=== PATIENT | male | born 1995 | race Caucasian/White ===

== ENCOUNTER 2017-09-09 17:13 | Inpatient (IN) | payer OTHER ==
[~2017-09-09 17:13] MED LIST: Dexamethasone 20 MG/5 ML VIAL ONE; Glycopyrrolate 0.2 MG/ML 5 ML SYRINGE ONE; ISOVUE-370 76%-LOCM 1 ML ONE; Iopamidol 370 76% 50 ML VIAL FS ONE; Lidocaine 1% PF 5 ML VIAL ONE; PHENYLEPHRINE-NS 100 MCG/ML 10 ML SYRINGE ONE; PROPOFOL 200 MG/20 ML VIAL ONE; Succinylcholine Chloride 20 MG/ML 10 ml SYRINGE FS ONE
[2017-09-09] MEDS ORDERED: Morphine 4 MG/ML VIAL ONE (18:11)
[2017-09-09 18:42] LABS: Bilirubin Negative (Negative); Blood, Urine Negative (Negative); Clarity CLEAR (Clear); Glucose, Urine (Dipstick) Negative (Negative); Leukocyte Negative (Negative); Nitrite Negative (Negative); Protein, Urine (Dipstick) Negative (Neg-Trace); Specific Gravity, Urine 1.021 (1.002-1.036); pH, Urine 7.5 (5.0-9.0)
[2017-09-09 18:44] LABS: #Basophils 0.1 thou/uL (0.0-0.2); #Eosinphils 0.1 thou/uL (0.0-0.7); #Lymphocytes 1.9 thou/uL (1.20-3.40); #Monocytes 0.8 thou/uL (0.11-0.59); #Neutrophils 6.8 thou/uL (1.40-6.50); %Basophils 0.8 % (0.0-1.0); %Eosinophils 0.5 % (0.0-10.0); %Lymphocytes 20.2 % (21.0-51.0); %Monocytes 7.9 % (0.0-10.0); %Neutrophils 70.6 % (42.0-75.0); Hemoglobin 16.7 g/dL (14.0-18.0); Mean Corpuscular HGB CONC 33.6 g/dL (32.0-36.0); Mean Corpuscular Hemoglobin 29.8 pg (27.0-31.0); Mean Corpuscular Volume 88.8 fl (80.0-94.0); Mean Platelet Volume 6.4 fL (7.4-10.4); Platelet Count 328 thou/uL (130-400); RBC Distribution Width 11.6 % (11.5-14.5); Red Blood Cell (RBC) Count 5.59 mill/uL (4.70-6.10); White Blood Cell (WBC) Count 9.6 thou/uL (4.8-10.8)
[2017-09-09 18:57] LABS: ALT (SGPT) 18 U/L (8-55); AST (SGOT) 16 U/L (5-34); Albumin 4.7 g/dL (3.5-5.0); Alkaline Phosphatase 81 U/L (40-150); Anion Gap 14 mmol/L (10-20); BUN (Urea Nitrogen) 9 mg/dL (8.9-20.6); Bilirubin, Total 0.5 mg/dL (0.2-1.2); Calc. Creatinine Clearance 0 mL/min (70-130); Calcium 9.6 mg/dL (7.8-10.44); Carbon Dioxide 24 mmol/L (22-29); Chloride 105 mmol/L (98-107); Estimated GFR-MDRD Greater than 90; Globulin 3.3 g/dL (2.4-3.5); Glucose 90 mg/dL (70-105); Lipase 11 U/L (8-78); Potassium 4.1 mmol/L (3.5-5.1); Sodium 139 mmol/L (136-145)
[2017-09-09] MEDS ORDERED: Piperacillin/Tazobactam 3.375 GM VIAL ONE (21:02)
[2017-09-09] MEDS ORDERED: Bupivacaine HCl 0.5%/Epinephrine 1:200,000/PF 30 ml Vial ONE (21:11)
[2017-09-09] MEDS ORDERED: Fentanyl 100 MCG/2 ML VIAL ONE ×4 (21:41→23:15)
--- NOTE | 2017-09-09 21:59 | CT ---
ABDOMEN CT WITH CONTRAST PELVIC CT WITH CONTRAST 09/09/17 HISTORY: Right lower quadrant pain, x2 days. Pain is worsening. COMPARISON: None. TECHNIQUE: An abdomen and pelvic CT are performed with IV and oral contrast. Coronal reformatted images are subm itted for interpretation. FINDINGS: ABDOMEN CT: Lung bases are clear. heart size is normal. No pericardial effusion. The descending thoracic aorta an d abdominal aorta have a normal caliber. No periaortic fat stranding. Intra and extra-hepatic portal vein is patent. Gallbladder is unremarkable. Liver, spleen, pancreas, and bilateral adrenal glands have appropriate enhancement. Unremarkable gall bladder. Symmetric enhancement of the kidneys. Bilaterally, no obstructive uropathy. No gastrohepatic, retrocrural or periportal lymphadenopathy. No mesenteric mass, lymphadenopathy, rl e air, or free fluid. There are scattered nonspecific, nonenlarged mesenteric lymph nodes. Gastric mucosal, duodenum and small bowel loops are normal. Ileocecal junction is normal. Scattered f ecal material and contrast in a nondistended, nondilated colon. Diverticulosis, without evidence of diverticulitis. Emanating from the cecal apex is a tubular structure containing hyperdense material i n the proximal aspect. The mid to distal aspect are dilated and there is evidence of adjacent mesente glen fat stranding. No evidence of perforation or abscess. Tubular structure measures approximately [address]: No mass, lymphadenopathy, free air, or free fluid. Urinary bladder is unremarkable. IMPRESSION: Appendicitis without evidence of perforation or abscess. Results of the study discussed with ER nurse practioner, 09/09/17 at 8:32 p.m. Code CR POS: [facility]
--- NOTE | 2017-09-09 22:49 | HP ---
DATE OF ADMISSION: 09/09/2017 CHIEF COMPLAINT: Right lower quadrant pain. HISTORY OF PRESENT ILLNESS: This is a 22-year-old student who presents with pain in lower abdomen. The pain is sharp described as 08/10, mostly in the right lower quadrant associated with nausea, no v omiting that associated with anorexia, but no fevers or chills. He has never had this kind of pain b efore. Denies history of chronic inflammatory bowel disease or Crohn's disease. PAST MEDICAL HISTORY: Denies. PAST SURGICAL HISTORY: Right knee surgery. MEDICINES TAKEN DAILY: None. ALLERGIES: No known drug allergies. SOCIAL HISTORY: No smoking, alcohol, or other drugs. REVIEW OF SYSTEMS: Ten-system review of systems, otherwise negative unless described above. PHYSICAL EXAMINATION: HEENT: Sclerae anicteric. Oropharynx clear. NECK: No lymphadenopathy. CHEST: Clear. HEART: Regular rate and rhythm. ABDOMEN: Soft, tender in the right lower quadrant, localized guarding. No rebound, no abdominal or inguinal hernias. EXTREMITIES: No ischemia or edema to extremities. LABORATORY AND X-RAY FINDINGS: CT scan shows acute appendicitis. ASSESSMENT: Acute appendicitis. PLAN: Laparoscopic appendectomy. Risks, benefits, alternatives discussed. He gives consent. We wi ll do this today.
[2017-09-09] MEDS ORDERED: Ondansetron HCl/PF 4 MG/2 ML Vial IVP PRN ×2 (22:54→23:50)
[2017-09-09] MEDS ORDERED: Promethazine HCl 25 MG/ML VIAL SLOW IVP PRN (22:54)
[2017-09-09] MEDS ORDERED: Promethazine HCl 25 MG/ML VIAL IM PRN ×2 (22:54→23:50)
[2017-09-09] MEDS ORDERED: HYDROcodone/Acetaminophen 10/325 mg Tablet PO PRN ×2 (23:50)
[2017-09-09] MEDS ORDERED: traMADol HCl 50 MG TAB PO PRN (23:50)
[2017-09-09] MEDS ORDERED: Dextrose 5% in Water 1,000 ML IV PRN (23:50)
[2017-09-09] MEDS ORDERED: hydrALAZINE 20 MG/ML VIAL SLOW IVP PRN (23:50)
[2017-09-09] MEDS ORDERED: Dextrose 50% Abboject 50 ML SYRINGE SLOW IVP PRN (23:50)
[2017-09-09] MEDS ORDERED: Sodium Chloride 0.9% 1,000 ML IV SCH (23:50)
[2017-09-09] MEDS ORDERED: Morphine 4 MG/ML VIAL SLOW IVP PRN (23:50)
[2017-09-09] MEDS ORDERED: Ketorolac Tromethamine 30 MG/ML VIAL IVP PRN (23:50)
[2017-09-10] MEDS: Morphine 4 MG/ML VIAL SLOW IVP PRN ×2 (00:36→03:09)
[2017-09-10 01:38] VITALS: BMI 37.5
[2017-09-10] MEDS: Piperacillin/Tazobactam 3.375 GM in Sodium Chloride 0.9% 100 ML IVPB SCH ×2 (03:10→07:57)
--- NOTE | 2017-09-10 05:36 | OP ---
DATE OF PROCEDURE: 09/09/2017 PREOPERATIVE DIAGNOSIS: Acute appendicitis. POSTOPERATIVE DIAGNOSIS: Acute appendicitis. PROCEDURE: Laparoscopic appendectomy. SURGEON: Jose Miguel Martínez M.D. ANESTHESIA: General. ESTIMATED BLOOD LOSS: Minimal. COMPLICATIONS: None. SPECIMEN: Appendix. FINDINGS: Appendicitis. TECHNIQUE: The patient was taken to the operating room, placed supine on the table. After general a nesthetic was obtained, the abdomen was shaved, and draped in a sterile fashion. A Dixon catheter barr d been placed. Curved incision made below the umbilicus, cautery used to dissect down to and score t he fascia. Abdominal cavity entered bluntly using a Fe clamp. Holding stitch of PDS was placed o n each side of the fascia. Nathan trocar was placed, high flow pneumoperitoneum was obtained. A sup rapubic 5 murmur port and a left lower quadrant 5 murmur port were placed under direct visualization. The cecum was rolled over to reveal acute appendicitis. A small window was made at the base of the appendix and the mesoappendix. A laparoscopic stapler was fired across the base of the appendix. A reload is fired across the mesoappendix. The appendix was placed in an Endo catch bag and brought o ut through the Nathan. There is no bleeding on the staple lines. The right lower quadrant and pelvi s was irrigated until returns are clear. There was no bleeding or evidence of damage to any intraabd ominal structures. All port sites infiltrated using local anesthetic. All ports are removed under c amera visualization. Pneumoperitoneum was let down. PDS was used to close the facial defect below t he umbilicus. All incisions were irrigated and closed using 4-0 Monocryl and Dermabond. The patient was en route to recovery in stable condition. All instrument counts, needle counts, and lap counts were correct.
[2017-09-10 08:01] VITALS: BP 111/73; TEMP 98.7
[2017-09-10] MEDS ORDERED: Famotidine/PF 20 mg/2ml Vial SLOW IVP SCH (09:00)
[2017-09-10] MEDS ORDERED: Prevnar 13-Val Conj/PF 0.5 ML SYRINGE IM ONE (09:00)
[2017-09-10] MEDS ORDERED: Famotidine 20 MG TAB PO SCH (09:00)
--- NOTE | 2017-09-10 12:21 | DIS ---
ADMIT DIAGNOSIS: Acute appendicitis. DISCHARGE DIAGNOSIS: Acute appendicitis. PROCEDURES: Laparoscopic appendectomy by Dr. Martínez without complication. CONDITION AT DISCHARGE: Improved. STAFF: Dr. Jose Miguel Martínez. HOSPITAL COURSE: See hospital chart for details of hospitalization. The patient discharged home on [place] as well as Zofran p.r.n. nausea. He will follow up with me in 2 weeks.
== END 2017-09-10 10:14 | disposition home or self-care (01) | DRG 343 ==
LOC: ERS 17:13 → SDC/OP 22:20 → SURG B 23:44 → OBSVTOIN 23:44
PROVIDERS: ADMIT Surgery; ATTEND Surgery
PROC: 0DTJ4ZZ Resection of Appendix, Percutaneous Endoscopic Approach (ICD-10-PCS; principal; 2017-09-09)
DX: K35.80 Unspecified acute appendicitis (principal)
CPT/HCPCS: 74177; 80053; 81003; 83690; 85025; 88304; 96361; 96365; 96374; 96375; J0670; J1100; J2001; J2270; J2543; J2704; J3010; J7050

== ENCOUNTER 2017-09-15 09:40 | Emergency (ER) | payer OTHER ==
[2017-09-15 11:18] LABS: #Basophils 0.1 thou/uL (0.0-0.2); #Eosinphils 0.2 thou/uL (0.0-0.7); #Lymphocytes 2.6 thou/uL (1.20-3.40); %Basophils 1.2 % (0.0-1.0); %Eosinophils 1.6 % (0.0-10.0); %Lymphocytes 24.3 % (21.0-51.0); %Monocytes 8.7 % (0.0-10.0); %Neutrophils 64.3 % (42.0-75.0); Mean Corpuscular HGB CONC 32.5 g/dL (32.0-36.0); Mean Corpuscular Hemoglobin 29.6 pg (27.0-31.0); Mean Corpuscular Volume 91.1 fl (80.0-94.0); Mean Platelet Volume 6.4 fL (7.4-10.4); Platelet Count 318 thou/uL (130-400); RBC Distribution Width 11.6 % (11.5-14.5); Red Blood Cell (RBC) Count 5.39 mill/uL (4.70-6.10); White Blood Cell (WBC) Count 10.8 thou/uL (4.8-10.8)
[2017-09-15 11:37] LABS: ALT (SGPT) 27 U/L (8-55); AST (SGOT) 19 U/L (5-34); Albumin 4.3 g/dL (3.5-5.0); Alkaline Phosphatase 71 U/L (40-150); Anion Gap 11 mmol/L (10-20); BUN (Urea Nitrogen) 11 mg/dL (8.9-20.6); Bilirubin, Total 0.3 mg/dL (0.2-1.2); Calc. Creatinine Clearance 0 mL/min (70-130); Calcium 9.3 mg/dL (7.8-10.44); Carbon Dioxide 23 mmol/L (22-29); Chloride 106 mmol/L (98-107); Estimated GFR-MDRD Greater than 90; Glucose 93 mg/dL (70-105); Lipase 14 U/L (8-78); Potassium 4.2 mmol/L (3.5-5.1); Protein, Total 7.3 g/dL (6.0-8.3); Sodium 136 mmol/L (136-145)
[2017-09-15] MEDS ORDERED: Ketorolac Tromethamine 30 MG/ML VIAL ONE (12:15)
[2017-09-15 12:41] LABS: Bilirubin Negative (Negative); Blood, Urine Negative (Negative); Clarity CLEAR (Clear); Glucose, Urine (Dipstick) Negative (Negative); Leukocyte Negative (Negative); Nitrite Negative (Negative); Protein, Urine (Dipstick) Negative (Neg-Trace); Specific Gravity, Urine 1.025 (1.002-1.036); Urobilinogen 0.2 mg/dL (0.2-1.0)
--- NOTE | 2017-09-15 13:58 | CT ---
CT ABDOMEN AND PELVIS WITH IV CONTRAST: DTAE: 09/15/17. HISTORY: Right side abdominal pain and fever. The patient is post laparoscopic appendectomy 6 days ago. The patient has had continued pain. COMPARISON: 09/09/17. FINDINGS: There are postsurgical changes related to recent cholecystectomy. There is mild inflammatory strandi ng seen within the posterior aspect right paracolic gutter. There is no fluid collection seen to sug gest an abscess and no free intraperitoneal gas is visualized. The inflammatory stranding in the rig ht lower quadrant may be related to recent post cholecystectomy changes. A few nonspecific nonenlarg ed lymph nodes are again seen. There is a minimal linear pleural-based density in the right middle lobe. There is a very tiny right pleural effusion. Lung bases are otherwise clear. The liver, spleen, pancreas, bilateral adrenal glands, kidneys, abdominal aorta, and opacified small bowel demonstrate a normal CT appearance. The urinary bladder demonstrates a normal CT appearance. There is no free fluid or enlarged lymph nodes seen by CT size criteria. IMPRESSION: 1. Mild inflammatory stranding seen posterior to the proximal ascending colon near the level of the cecum which may be related to recent postsurgical changes. There is no fluid collection seen to sugg est an abscess, and no free intraperitoneal gas is seen in the abdomen or pelvis. CT scan of the abdomen and pelvis is otherwise stable from prior study. 2. Gas densities near the region of the umbilicus which may be related to site of prior Trocar place ment. POS: [facility]
[2017-09-15] MEDS ORDERED: ISOVUE-370 76%-LOCM 1 ML ONE (15:51)
== END 2017-09-15 14:14 | disposition home or self-care (01) ==
LOC: ERS 09:40
DX: K59.00 Constipation, unspecified (principal); G43.909 Migraine, unspecified, not intractable, without status migrainosus
CPT/HCPCS: 36415; 74177; 80053; 81003; 83690; 85025; 96374; J1885

== ENCOUNTER 2018-02-24 11:52 | Emergency (ER) | payer OTHER ==
[2018-02-24] MEDS ORDERED: Acetaminophen 500 MG TAB ONE (12:23)
[2018-02-24] MEDS ORDERED: Metoclopramide HCl 10 MG/2 ML VIAL ONE (12:23)
[2018-02-24] MEDS ORDERED: Ketorolac Tromethamine 30 MG/ML VIAL ONE (12:23)
[2018-02-24] MEDS ORDERED: Dexamethasone 10 MG/ML VIAL ONE (12:23)
== END 2018-02-24 13:26 | disposition home or self-care (01) ==
LOC: ERS 11:52
DX: G43.909 Migraine, unspecified, not intractable, without status migrainosus (principal)
CPT/HCPCS: 96365; 96375; J1100; J1885; J2765

== ENCOUNTER 2018-03-02 17:49 | Emergency (ER) | payer OTHER ==
[2018-03-02] MEDS ORDERED: Metoclopramide HCl 10 MG/2 ML VIAL ONE (19:03)
[2018-03-02] MEDS ORDERED: Ketorolac Tromethamine 30 MG/ML VIAL ONE (19:03)
[2018-03-02] MEDS ORDERED: diphenhydrAMINE 50 MG/ML VIAL ONE (19:06)
[2018-03-02] MEDS ORDERED: methylPREDNISolone Sod Succ/PF 125 MG/2 ML VIAL ONE (19:34)
== END 2018-03-02 20:54 | disposition home or self-care (01) ==
LOC: ERS 17:49
DX: G43.909 Migraine, unspecified, not intractable, without status migrainosus (principal)
CPT/HCPCS: 96365; 96375; J1200; J1885; J2765; J2930

== ENCOUNTER 2018-07-15 16:52 | Emergency (ER) | payer OTHER ==
[2018-07-15] MEDS ORDERED: diphenhydrAMINE 50 MG/ML VIAL ONE (18:29)
[2018-07-15] MEDS ORDERED: Ketorolac Tromethamine 30 MG/ML VIAL ONE (18:29)
[2018-07-15] MEDS ORDERED: Metoclopramide HCl 10 MG/2 ML VIAL ONE (18:29)
== END 2018-07-15 21:00 | disposition home or self-care (01) ==
LOC: ERS 16:52
DX: G43.909 Migraine, unspecified, not intractable, without status migrainosus (principal)
CPT/HCPCS: 96365; 96366; 96375; J1200; J1885; J2765

== ENCOUNTER 2019-05-02 14:15 | Emergency (ER) | payer OTHER ==
[2019-05-02 15:05] LABS: #Basophils 0.1 thou/uL (0.0-0.2); #Eosinphils 0.2 thou/uL (0.0-0.7); #Lymphocytes 1.2 thou/uL (1.20-3.40); #Monocytes 0.8 thou/uL (0.11-0.59); #Neutrophils 6.4 thou/uL (1.40-6.50); %Basophils 0.8 % (0.0-1.0); %Lymphocytes 14.1 % (21.0-51.0); %Monocytes 9.5 % (0.0-10.0); %Neutrophils 73.7 % (42.0-75.0); Hemoglobin 14.8 g/dL (14.0-18.0); Mean Corpuscular HGB CONC 33.9 g/dL (32.0-36.0); Mean Corpuscular Hemoglobin 29.1 pg (27.0-31.0); Mean Corpuscular Volume 86.1 fL (78.0-98.0); Mean Platelet Volume 6.1 fL (7.4-10.4); Platelet Count 340 thou/uL (130-400); RBC Distribution Width 11.9 % (11.5-14.5); Red Blood Cell (RBC) Count 5.09 mill/uL (4.70-6.10); White Blood Cell (WBC) Count 8.6 thou/uL (4.8-10.8)
[2019-05-02 15:26] LABS: ALT (SGPT) 258 U/L (8-55); AST (SGOT) 79 U/L (5-34); Albumin 4.3 g/dL (3.5-5.0); Alkaline Phosphatase 131 U/L (40-110); Anion Gap 13 mmol/L (10-20); BUN (Urea Nitrogen) 7 mg/dL (8.9-20.6); Bilirubin, Total 0.7 mg/dL (0.2-1.2); Calc. Creatinine Clearance 0 mL/min (70-130); Carbon Dioxide 26 mmol/L (22-29); Chloride 105 mmol/L (98-107); Estimated GFR-MDRD Greater than 90; Globulin 2.9 g/dL (2.4-3.5); Glucose 116 mg/dL (70-105); Potassium 3.6 mmol/L (3.5-5.1); Protein, Total 7.2 g/dL (6.0-8.3); Sodium 140 mmol/L (136-145)
[2019-05-02 15:49] LABS: Mononucleosis NEGATIVE (NEGATIVE)
[2019-05-02 15:50] LABS: MONO NEGATIVE CONTROL ZONE White (Negative) (White); MONO POSITIVE CONTROL Pink Line (Positive) (PINK/RED)
== END 2019-05-02 16:13 | disposition home or self-care (01) ==
LOC: ERS 14:15
DX: R21 Rash and other nonspecific skin eruption (principal); R50.9 Fever, unspecified; G43.909 Migraine, unspecified, not intractable, without status migrainosus; Z79.899 Other long term (current) drug therapy
CPT/HCPCS: 36415; 80053; 85025; 86308; 87081; 87430; 99283

== ENCOUNTER 2019-05-04 18:28 | Emergency (ER) | payer OTHER ==
[2019-05-04 20:00] LABS: Hemoglobin 16.1 g/dL (14.0-18.0); Mean Corpuscular HGB CONC 34.7 g/dL (32.0-36.0); Mean Corpuscular Volume 86.4 fL (78.0-98.0); Mean Platelet Volume 6.5 fL (7.4-10.4); Platelet Count 298 thou/uL (130-400); Red Blood Cell (RBC) Count 5.38 mill/uL (4.70-6.10); White Blood Cell (WBC) Count 9.2 thou/uL (4.8-10.8)
[2019-05-04 20:27] LABS: ALT (SGPT) 160 U/L (8-55); AST (SGOT) 49 U/L (5-34); Albumin 4.6 g/dL (3.5-5.0); Alkaline Phosphatase 126 U/L (40-110); Anion Gap 14 mmol/L (10-20); BUN (Urea Nitrogen) 10 mg/dL (8.9-20.6); Bilirubin, Total 0.7 mg/dL (0.2-1.2); Calc. Creatinine Clearance 0 mL/min (70-130); Calcium 9.3 mg/dL (7.8-10.44); Carbon Dioxide 24 mmol/L (22-29); Chloride 101 mmol/L (98-107); Estimated GFR-MDRD Greater than 90; Globulin 3.4 g/dL (2.4-3.5); Glucose 88 mg/dL (70-105); Potassium 3.8 mmol/L (3.5-5.1); Sodium 135 mmol/L (136-145)
[2019-05-04 20:33] LABS: Band 24 % (5-11); Eosinophils 3 % (0-10); Lymphocytes 9 % (21-51); MDiff Complete? YES; Monocytes 3 % (0-10); Neutrophil 58 % (42-75); Platelet Morphology Comment Appears Adequate; RBC Morphology Normal; Reactive Lymphocytes 2 % (0-10)
[2019-05-04 21:10] LABS: ALT (SGPT) 161 U/L (8-55); AST (SGOT) 51 U/L (5-34); Albumin 4.7 g/dL (3.5-5.0); Alkaline Phosphatase 129 U/L (40-110); Bilirubin, Direct 0.3 mg/dL (0.1-0.3); Bilirubin, Total 0.7 mg/dL (0.2-1.2)
== END 2019-05-04 21:58 | disposition home or self-care (01) ==
LOC: ERS 18:28
DX: M08.2 Juvenile rheumatoid arthritis with systemic onset (principal); G43.909 Migraine, unspecified, not intractable, without status migrainosus
CPT/HCPCS: 36415; 80053; 85025; 85652; 86140; 87040; 96360; 96361